=== PATIENT | male | born 1955 | race Caucasian/White ===

== ENCOUNTER 2021-11-24 09:27 | Outpatient (CLI) | payer MEDICARE, SELFPAY ==
[2021-11-24 09:39] LABS: Hematocrit 45.4 % (37.0-46.0); Hemoglobin 15.3 g/dL (12.4-15.3); Mean Corpuscular HGB Conc 33.7 g/dL (32.0-36.0); Mean Corpuscular Hemoglobin 31.5 pg (27.0-31.0); Mean Corpuscular Volume 93.4 fL (78.0-102.0); Mean Platelet Volume 8.7 fl (8.7-11.0); Platelet Count Result 309 K/mm3 (150-420); Red Blood Count 4.86 M/mm3 (4.70-6.10); Red Cell Distribution Width 13.2 % (11.6-14.4); White Blood Count 5.5 K/mm3 (4.8-10.8)
[2021-11-24 10:22] LABS: Alanine Aminotransferase 29 U/L (16-63); Albumin Level 3.6 g/dL (3.4-5.0); Alkaline Phosphatase 63 U/L (46-116); Anion Gap 9 mmol/L (8-16); Aspartate Amino Transferase 20 U/L (15-37); Bilirubin,Total 0.7 mg/dL (0.00-1.00); Blood Urea Nitrogen 13 mg/dL (7-18); Calcium 9.1 mg/dL (8.5-10.1); Carbon Dioxide 29 mmol/L (21-32); Chloride 103 mmol/L (98-108); Cholesterol 130 mg/dL (0-200); Estimated Glomerular Filt Rate > 60; Glucose 94 mg/dL (70-99); HDL Direct 26 mg/dL (40-60); LDL Cholesterol Calculated 47 mg/dL (<130); Osmolality Calculated 292 mOsm/kg (285-295); Potassium 4.6 mmol/L (3.5-5.1); Sodium 141 mmol/L (136-145); Total Protein 6.7 g/dL (6.4-8.2); Triglycerides 283 mg/dL (0-150)
== END 2021-11-24 09:28 | disposition home or self-care (01) ==
LOC: CHSLAB 09:31
PROVIDERS: PCP Family Medicine; Visit Provider Nurse Practitioner Family
DX: I10 Essential (primary) hypertension (principal); Z13.6 Encounter for screening for cardiovascular disorders
CPT/HCPCS: 36415; 80053; 80061; 85027

== ENCOUNTER 2021-12-08 07:27 | Outpatient (CLI) | payer MEDICARE, SELFPAY ==
--- NOTE | ~2021-12-08 | MR_ITS ---
EXAMINATION: MR brain/brain stem wo con DATE: 12/08/2021 08:25 INDICATION: Headache. TECHNIQUE: Magnetic resonance imaging (MRI) of the brain and brainstem was performed without intraven ous contrast. Sequences included sagittal and axial T1-weighted SE, axial diffusion-weighted FS SE, a xial T2*-weighted GRE, axial T2-weighted FLAIR Propeller, and axial T2-weighted Propeller. Apparent d iffusion coefficient (ADC) maps were created. COMPARISON: CT sinus dated 12/08/2021. FINDINGS: Normal brain parenchymal volume for age. Normal haley-white differentiation. No ventriculome azalea or midline shift. No abnormal masses or mass effect. Flow-voids in the major intracerebral arter ies are within normal limits. There is mild right maxillary sinus disease. There are scattered mild p eriventricular and subcortical white matter changes, most likely related to small vessel ischemic dis ease (microangiopathy). Midline sagittal images are unremarkable. IMPRESSION: 1. Mild right maxillary sinus disease. 2: Chronic age-related findings. Reviewed, dictated and finalized at location A.
--- NOTE | ~2021-12-08 | CT_ITS ---
EXAMINATION: CT sinus wo con DATE: 12/08/2021 07:44 INDICATION: Chronic sinusitis. Headache. TECHNIQUE: Computed tomography (CT) of the paranasal sinuses was performed without intravenous contra st. The dose-length product was 283.39 mGy-cm. Automated exposure control and iterative reconstructio n technique were employed. COMPARISON: None FINDINGS: There is mucosal thickening of the right maxillary sinus. No mucoperiosteal reaction. Ostio meatal units are patent. No air-fluid levels. Mastoids are pneumatized. IMPRESSION: 1. Mild right maxillary sinus disease. Reviewed, dictated and finalized at location A.
== END 2021-12-08 07:28 | disposition home or self-care (01) ==
LOC: CHSIMG 07:29
PROVIDERS: PCP Family Medicine; Visit Provider Family Medicine
DX: J32.9 Chronic sinusitis, unspecified (principal); R51.9 Headache, unspecified; G89.29 Other chronic pain
CPT/HCPCS: 70486; 70551

== ENCOUNTER 2022-04-01 15:09 | Outpatient (CLI) | payer MEDICARE, SELFPAY ==
[2022-04-01 16:36] LABS: Vitamin B12 1980 pg/mL (193-986)
== END 2022-04-01 15:10 | disposition home or self-care (01) ==
LOC: CHSLAB 15:13
PROVIDERS: PCP Family Medicine
DX: G43.709 Chronic migraine without aura, not intractable, without status migrainosus (principal)
CPT/HCPCS: 36415; 82607; 83735

== ENCOUNTER 2022-07-20 15:37 | Outpatient (CLI) | payer MEDICARE, SELFPAY ==
--- NOTE | ~2022-07-20 | XR_ITS ---
EXAMINATION: XR chest 2V 07/20/2022 15:59 INDICATION: Cough PROCEDURE: 2 view chest COMPARISON: No prior studies for comparison. FINDINGS: The lungs are clear. The cardiomediastinal silhouette is within normal limits. There are no pleural effusions. There is no pneumothorax suspected. IMPRESSION: 1: NO ACUTE CARDIOPULMONARY DISEASE. Reviewed, dictated and finalized at location A.
[2022-07-20 16:00] LABS: Hematocrit 46.4 % (37.0-46.0); Hemoglobin 15.6 g/dL (12.4-15.3); Mean Corpuscular HGB Conc 33.6 g/dL (32.0-36.0); Mean Corpuscular Hemoglobin 31.1 pg (27.0-31.0); Mean Corpuscular Volume 92.4 fL (78.0-102.0); Mean Platelet Volume 9.3 fl (8.7-11.0); Platelet Count Result 276 K/mm3 (150-420); Red Blood Count 5.02 M/mm3 (4.70-6.10); Red Cell Distribution Width 13.3 % (11.6-14.4); White Blood Count 5.1 K/mm3 (4.8-10.8)
[2022-07-20 17:05] LABS: Alanine Aminotransferase 32 U/L (16-63); Albumin Level 4.1 g/dL (3.4-5.0); Alkaline Phosphatase 92 U/L (46-116); Anion Gap 6 mmol/L (8-16); Aspartate Amino Transferase 24 U/L (15-37); Bilirubin,Total 0.5 mg/dL (0.00-1.00); Blood Urea Nitrogen 11 mg/dL (7-18); Carbon Dioxide 29 mmol/L (21-32); Chloride 105 mmol/L (98-108); Estimated Glomerular Filt Rate > 60; Glucose 93 mg/dL (70-99); Osmolality Calculated 289 mOsm/kg (285-295); Potassium 4.6 mmol/L (3.5-5.1); Sodium 140 mmol/L (136-145); Total Protein 7.1 g/dL (6.4-8.2)
== END 2022-07-20 15:38 | disposition home or self-care (01) ==
LOC: CHSLAB 15:40
PROVIDERS: PCP Family Medicine; Visit Provider Family Medicine
DX: R05.9 Cough, unspecified (principal)
CPT/HCPCS: 36415; 71046; 80053; 85027

== ENCOUNTER 2022-07-21 11:35 | Outpatient (CLI) | payer MEDICARE, SELFPAY ==
--- NOTE | ~2022-07-21 | CT_ITS ---
EXAMINATION: CTA chest PE protocol DATE: 07/21/2022 12:14 INDICATION: Dyspnea. TECHNIQUE: Computed tomography angiography (CTA) of the chest was performed with 100 mL Omnipaque-350 intravenous contrast timed to evaluate the pulmonary arteries. Coronal maximum intensity projection 3D-reconstructions were created by the technologist. Automated exposure control and iterative reconst ruction technique were employed. The dose-length product was 863.66 mGy-cm. COMPARISON: None. FINDINGS: There is a 3 mm nodule in right lung upper lobe. A calcified right lung nodule and calcifie d mediastinal lymph node are consistent with old granulomatous disease. There is minimal atelectasis on the left. No pleural effusion. The heart size is normal. No pericardial effusion. There is no pulm onary embolus. There is bilateral gynecomastia. There is severe thoracic spondylosis. IMPRESSION: 1. No pulmonary embolus. Reviewed, dictated and finalized at location A. IMPRESSION: 1. No pulmonary embolus.
== END 2022-07-21 11:36 | disposition home or self-care (01) ==
LOC: CHSLAB 11:38
PROVIDERS: PCP Family Medicine; Visit Provider Family Medicine
DX: R06.00 Dyspnea, unspecified (principal)
CPT/HCPCS: 71275; Q9967

== ENCOUNTER 2022-11-02 13:03 | Outpatient (RCR) | payer MEDICARE, SELFPAY ==
--- NOTE | 2022-11-02 13:40 | PTOPEVAL1 ---
Assessment and note entered by Jerry Rodney Evaluation Information Assessment Status Evaluation Diagnosis cervical pain Onset 05/02/22 Subjective Information Pt. reports that he developed worsening neck pain and headaches over the past 6 months. Pt. describes pain going across the neck. He reports that he has constant headaches. He reports pain is worst with activities such as looking at his phone or tablet. He states that he notices popping in the neck and has difficulty with turning the head side to side while driving. He reports that pain will disrupt his sleep when turning over. He states that his goal for therapy is to get rid of his headaches. Reported Pain Level Pain Score 5,5: Self Report Assessment PT Clinical Summary Pt. is a 67 year old male who enters the clinic with neck pain. He presents with impaired c-spine ROM, pain, impaired postural awareness and proximal u.e. weakness. Continued skilled PT is indicated in order to improve these areas to help reduce pain and improve IADL performance. Plan of Care Interventions Electrical Stimulation,Hot Pack/Cold Pack,Manual Therapy,Neuro Re-education,Patient/Caregiver Educati,Therapeutic Activities,Therapeutic Exercise,Self-Care/Home Management PT Services Indicated Yes Treatment Frequency and 2x/week x 10 visits Duration These treatments will address the objective and functional deficits as defined above. The patient will be advanced safely and appropriately in order for the patient to progress towards his/her prior level of function. Additional exercises will be introduced and as well as a comprehensive home exercise program upon discharge, if needed, ?to ensure carryover of functional gains achieved in the clinic. This treatment plan has been reviewed and agreement upon by the patient.
== END 2022-12-13 10:54 | disposition home or self-care (01) ==
LOC: CHSPT 13:03
DX: G43.709 Chronic migraine without aura, not intractable, without status migrainosus (principal); M54.2 Cervicalgia
CPT/HCPCS: 97014; 97110; 97140; 97161; G0283

== ENCOUNTER 2022-12-30 09:04 | Outpatient (CLI) | payer MEDICARE, SELFPAY ==
[2022-12-30 09:21] LABS: Hematocrit 43.8 % (37.0-46.0); Hemoglobin 14.5 g/dL (12.4-15.3); Mean Corpuscular HGB Conc 33.1 g/dL (32.0-36.0); Mean Corpuscular Hemoglobin 30.7 pg (27.0-31.0); Mean Corpuscular Volume 92.6 fL (78.0-102.0); Mean Platelet Volume 9.3 fl (8.7-11.0); Platelet Count Result 271 K/mm3 (150-420); Red Blood Count 4.73 M/mm3 (4.70-6.10); Red Cell Distribution Width 13.4 % (11.6-14.4); White Blood Count 5.7 K/mm3 (4.8-10.8)
[2022-12-30 09:49] LABS: Alanine Aminotransferase 31 U/L (16-63); Albumin Level 3.7 g/dL (3.4-5.0); Alkaline Phosphatase 82 U/L (46-116); Anion Gap 7 mmol/L (8-16); Aspartate Amino Transferase 33 U/L (15-37); Bilirubin,Total 0.4 mg/dL (0.00-1.00); Blood Urea Nitrogen 16 mg/dL (7-18); Calcium 8.7 mg/dL (8.5-10.1); Carbon Dioxide 28 mmol/L (21-32); Chloride 106 mmol/L (98-108); Cholesterol 110 mg/dL (0-200); Estimated Glomerular Filt Rate > 60; Glucose 109 mg/dL (70-99); HDL Direct 27 mg/dL (40-60); LDL Cholesterol Calculated 48 mg/dL (<130); Osmolality Calculated 294 mOsm/kg (285-295); Potassium 4.4 mmol/L (3.5-5.1); Sodium 141 mmol/L (136-145); Triglycerides 177 mg/dL (0-150)
== END 2022-12-30 09:05 | disposition home or self-care (01) ==
LOC: CHSLAB 09:05
PROVIDERS: PCP Family Medicine; Visit Provider Family Medicine
DX: I10 Essential (primary) hypertension (principal)
CPT/HCPCS: 36415; 80053; 80061; 85027

== ENCOUNTER 2023-10-24 07:53 | Outpatient (CLI) | payer MEDICARE, SELFPAY ==
--- NOTE | 2023-10-24 07:57 | EST_ITS ---
Patient Info Name: Wan Fabian Age: 68 years : 1955 Gender: Male Ht: 66 in Wt: 252 lbs BSA: 2.36 m2 HR: 76 bpm BP: 137 / 68 mmHg Heart Rhythm: Sinus Rhythm Technical Quality: Good Exam Date: 10/24/2023 9:15 AM Exam Location: Echo Lab Patient Status: Outpatient Admit Date: 10/24/2023 Staff Ordering Physician: Donal Diaz DO Attending Provider: Donal Diaz DO Exam Type: CA stress herberth w NM Study Info A regadenoson stress test was performed. History/Risk Factors Family History: Coronary Artery Disease Summary 1. 1. Negative lexiscan stress test for ischemic ST changes by ECG criteria. 2. 2. Stable hemodynamics throughout the test. 3. 3. Nuclear scan to follow and will be reported separately. Please correlate with it. Protocol: LEXISCAN Stress ECG Details Stage: REST Duration (min): 5 min : 53 sec HR (bpm): 76 SBP (mmHg): 137 DBP (mmHg): 68 Stage: REST Duration (min): 11 min : 13 sec HR (bpm): 79 SBP (mmHg): 137 DBP (mmHg): 68 Stage: STAGE 1 Duration (min): 0 min : 12 sec HR (bpm): 77 SBP (mmHg): 137 DBP (mmHg): 68 Stage: RECOVERY Duration (min): 0 min : 47 sec HR (bpm): 97 SBP (mmHg): 137 DBP (mmHg): 68 Stage: RECOVERY Duration (min): 1 min : 47 sec HR (bpm): 99 SBP (mmHg): 144 DBP (mmHg): 84 Stage: RECOVERY Duration (min): 2 min : 47 sec HR (bpm): 93 SBP (mmHg): 135 DBP (mmHg): 86 Stage: RECOVERY Duration (min): 3 min : 47 sec HR (bpm): 93 SBP (mmHg): 135 DBP (mmHg): 86 Stage: RECOVERY Duration (min): 4 min : 47 sec HR (bpm): 88 SBP (mmHg): 130 DBP (mmHg): 70 Stage: RECOVERY Duration (min): 5 min : 47 sec HR (bpm): 86 SBP (mmHg): 133 DBP (mmHg): 69 Stage: RECOVERY Duration (min): 6 min : 20 sec HR (bpm): 89 SBP (mmHg): 133 DBP (mmHg): 69 Rest HR: 79 bpm Peak HR: 100 bpm Rest Sys BP: 137 mmHg Peak Sys BP: 144 mmHg Max Pred HR: 153 bpm % Max Pred HR: 65 % Target HR: 130 bpm Max RPP: 14,400 bpm*mmHg BP Response: Normal blood pressure response Termination Reason: Completed Protocol Cardiac Symptoms: Chest discomfort Total Time: 0 min : 12 sec Rest Coleman BP: 68 mmHg Peak Coleman BP: 84 mmHg Total Dose: 0.4 mg Resting ECG Normal sinus rhythm - normal ECG. Stress ECG No abnormal ST/T wave changes. Arrhythmias None. Report Signatures
--- NOTE | 2023-10-25 16:16 | WPDCARIOSTRE ---
Nuclear Stress Test INDICATIONS Indications: Dyspnea PROCEDURE Procedure Performed: Myocardial Perf Spect-Multi Procedure: Patient underwent a lexiscan stress test and immediately was injected with 30.8 mCi of cardiolyte. Multiple tomographic images were obtained. These are of good quality. There is no perfusion defect with stress imaging. A separate resting images were obtained after patient was injected with 10.0 mCi of cardiolyte. Multiple tomographic images were obtained. These are of good quality. There is evidence of a large size, severe inferior perfusion defect with rest imaging CONCLUSION Conclusion: 1. Normal myocardial perfusion imaging demonstrating no perfusion defect with stress imaging. 2. No evidence of reversible ischemia. 3. Left ventriculogram demonstrates normal measured ejection fraction of 67% with no wall motion abnormalities. 4. TID score 0.98 is not elevated.
== END 2023-10-24 07:54 | disposition home or self-care (01) ==
LOC: CHSIMG 07:54
PROVIDERS: PCP Family Medicine; Visit Provider Family Medicine
DX: R07.9 Chest pain, unspecified (principal); R68.89 Other general symptoms and signs
CPT/HCPCS: 78452; 93017; A9502; J2785

== ENCOUNTER 2023-11-23 09:53 | Outpatient (CLI) | payer MEDICARE, SELFPAY ==
--- NOTE | 2023-12-01 14:25 | WPDPFTINT ---
PFT Procedure Performed PFT Procedure Performed Spirometry with Pre/Post Bronchodilator Plethysmography (Lung Vol) Diffusing Cap (DLCO) Flow Vol Loop PFT Interpretation DOS: 11/23/2023 REQUESTING: Dr Donal Diaz REASON FOR TESTING: Asthma PULMONARY FUNCTION TESTS Results are reliable and reproducible. Spirometry: Pre bronchodilator FEV1 is 1.78 L, 63% predicted, decreased. Pre bronchodilator FVC is 2.69 L, 74 %, normal. FEV1/FVC ratio is 66%, decreased, consistent with airflow obstruction. After bronchodilator administration there is a 4% increase in the FEV1, 1.84 L, 65% predicted. There is a 3% increase in the FVC, 2.76 L, 76% predicted. The FEV1/FVC ratio after bronchodilator remains low, 67%. Lung volumes: Total lung capacity is 6.41 L, 110%, normal. Residual volume is 3.71 L, 162%, elevated consistent with air trapping. RV/TLC is increased 58%. FRC is 4.11 L, 151%, increased. Airway resistance is 2.43, 135%. Diffusion: DLCO is 21.5, 85% predicted normal. DLCO/VA 4.84, 132% predicted, normal. Flow volume loop: There is coving of the expiratory limb consistent with airflow obstruction. IMPRESSION: This study shows a mild obstructive ventilatory impairment with no significant response to bronchodilator, moderate air trapping and normal diffusion impairment. Lack of response to bronchodilator does not preclude use of clinically indicated. There are no prior studies for comparison. Shanelle Ashraf MD
== END 2023-11-23 09:54 | disposition home or self-care (01) ==
LOC: CHSCARD 09:54
PROVIDERS: PCP Family Medicine; Visit Provider Family Medicine
DX: R68.89 Other general symptoms and signs (principal); J45.909 Unspecified asthma, uncomplicated
CPT/HCPCS: 94060; 94726; 94729

== ENCOUNTER 2023-12-13 09:44 | Outpatient (CLI) | payer MEDICARE, SELFPAY ==
--- NOTE | ~2023-12-13 | XR_ITS ---
EXAMINATION: XR chest 2V 12/13/2023 10:11 INDICATION: Worsening shortness of breath. Asthma. PROCEDURE: 2 view chest COMPARISON: 03/19/2022 FINDINGS: The lungs are clear. Calcified granuloma right upper thorax. The cardiomediastinal silhouet te is within normal limits. There are no pleural effusions. There is no pneumothorax suspected. IMPRESSION: 1: NO ACUTE CARDIOPULMONARY DISEASE. Reviewed, dictated and finalized at location L.
== END 2023-12-13 09:45 | disposition home or self-care (01) ==
PROVIDERS: PCP Family Medicine; Visit Provider Family Medicine
DX: R07.9 Chest pain, unspecified (principal); R06.00 Dyspnea, unspecified
CPT/HCPCS: 71046

== ENCOUNTER 2023-12-26 09:27 | Outpatient (CLI) | payer MEDICARE, SELFPAY ==
--- NOTE | 2023-12-26 09:31 | ECHO_ITS ---
Patient Info Name: Wan Fabian Age: 68 years : 1955 Gender: Male Ht: 65 in Wt: 254 lbs BSA: 2.36 m2 HR: 78 bpm BP: 169 / 89 mmHg Heart Rhythm: Sinus Rhythm Technical Quality: Good Exam Date: 12/26/2023 9:24 AM Exam Location: Echo Lab Patient Status: Outpatient Admit Date: 12/26/2023 Staff Ordering Physician: Donal Diaz DO Wax Pumper: Kalyn Isbell RDCS Attending Provider: Donal Diaz DO Referring Physician: Emily DE LOS SANTOS; Exam Type: CA echo doppler color flow Study Info Indications - HEART FAILURE, UNSP Complete two-dimensional, color flow and Doppler transthoracic echocardiogram is performed. History/Risk Factors Family History: Coronary Artery Disease Summary 1. Complete two-dimensional, color flow and Doppler transthoracic echocardiogram is performed. 2. Left ventricular chamber dimension is normal. 3. Left ventricular systolic function is normal, estimated at 60-65%. 4. There is mild concentric increased left ventricular wall thickness. 5. The left ventricular diastolic function is grade I diastolic dysfunction. 6. E/e' 15 is elevated. 7. Left atrial chamber dimension is mildly enlarged. 8. There is moderate aortic valve sclerosis. 9. There is mild to moderate aortic valve stenosis with a peak velocity of 189 cm/s, mean gradient of 10 mmHg, and aortic valve area of 1.4 cm2. 10. There is trace aortic valve regurgitation. 11. No pulmonary hypertension, estimated pulmonary arterial systolic pressure is 19 mmHg. Left Ventricle E/e' 15 is elevated. Left ventricular chamber dimension is normal. Left ventricular systolic function is normal, estimated at 60-65%. There is mild concentric increased left ventricular wall thickness. The left ventricular diastolic function is grade I diastolic dysfunction. Right Ventricle Right ventricular systolic function is normal and with normal TAPSE 3.1 cm. Right ventricular chamber dimension is normal. Left Atria Left atrial chamber dimension is mildly enlarged. Right Atria Right atrial chamber dimension is normal. Aortic Valve The aortic valve is trileaflet. There is moderate aortic valve sclerosis. There is mild to moderate aortic valve stenosis with a peak velocity of 189 cm/s, mean gradient of 10 mmHg, and aortic valve area of 1.4 cm2. There is trace aortic valve regurgitation. Pulmonic Valve There is no pulmonic regurgitation. Mitral Valve There is no mitral valve stenosis. There is no mitral valve regurgitation. Tricuspid Valve There is no tricuspid valve regurgitation. No pulmonary hypertension, estimated pulmonary arterial systolic pressure is 19 mmHg. Pericardium/Pleural There is no pericardial effusion. Inferior Vena Cava Normal inferior vena cava with >50% collapse upon inspiration consistent with normal right atrial pressure, 5 mmHg. Aorta The aortic root size at the sinus of Valsalva is normal. Left Ventricular Outflow Tract Name Value Normal LVOT 2D LVOT Diameter 1.8 cm LVOT Doppler LVOT Peak Velocity 119 cm/s LVOT Peak Gradient 6 mmHg LVOT Mean Gradient 4 mmHg LVOT VTI 31 cm
== END 2023-12-26 09:28 | disposition home or self-care (01) ==
LOC: CHSIMG 09:28
PROVIDERS: PCP Family Medicine; Visit Provider Family Medicine
DX: I50.9 Heart failure, unspecified (principal); I51.7 Cardiomegaly; I35.8 Other nonrheumatic aortic valve disorders
CPT/HCPCS: 93306

== ENCOUNTER 2024-10-04 10:18 | Outpatient (CLI) | payer MEDICARE, SELFPAY ==
[2024-10-04 11:25] LABS: Alanine Aminotransferase 32 U/L (16-63); Albumin Level 3.9 g/dL (3.4-5.0); Alkaline Phosphatase 77 U/L (46-116); Anion Gap 6 mmol/L (4-12); Aspartate Amino Transferase 27 U/L (15-37); Bilirubin,Total 0.6 mg/dL (0.00-1.00); Blood Urea Nitrogen 20 mg/dL (7-18); Calcium 9.5 mg/dL (8.5-10.1); Carbon Dioxide 32 mmol/L (21-32); Chloride 105 mmol/L (98-108); Cholesterol 161 mg/dL (0-200); Estimated Glomerular Filt Rate > 60; Glucose 93 mg/dL (70-99); HDL Direct 36 mg/dL (40-60); LDL Cholesterol Calculated 98 mg/dL (<130); Osmolality Calculated 298 mOsm/kg (285-295); Sodium 143 mmol/L (136-145); Total Protein 6.6 g/dL (6.4-8.2); Triglycerides 137 mg/dL (0-150)
== END 2024-10-04 10:19 | disposition home or self-care (01) ==
LOC: CHSLAB 10:19
PROVIDERS: PCP Family Medicine; Visit Provider Internal Medicine Cardiovascular Disease
DX: E78.5 Hyperlipidemia, unspecified (principal)
CPT/HCPCS: 36415; 80053; 80061

== ENCOUNTER 2025-01-03 09:07 | Outpatient (CLI) | payer MEDICARE, SELFPAY ==
[2025-01-03 09:34] LABS: Basophils Absolute Auto 0.05 K/mm3 (0.00-0.10); Basophils Percent Auto 0.8 % (0.0-1.0); Eosinophils Absolute Auto 0.17 K/mm3 (0.02-0.50); Eosinophils Percent Auto 2.8 % (1.0-6.0); Hematocrit 42.4 % (37.0-46.0); Hemoglobin 14.1 g/dL (12.4-15.3); Immature Granulocyte Absolute 0.02 K/mm3 (0.00-0.00); Immature Granulocyte Percent A 0.3 % (0.0-0.0); Lymphocytes Absolute Auto 2.29 K/mm3 (1.10-4.50); Lymphocytes Percent Auto 37.6 % (18.0-42.0); Mean Corpuscular HGB Conc 33.3 g/dL (32-36); Mean Corpuscular Hemoglobin 30.2 pg (27.0-31.0); Mean Corpuscular Volume 90.8 fL (78.0-102.0); Monocytes Absolute Auto 0.68 K/mm3 (0.10-0.90); Monocytes Percent Auto 11.2 % (2.0-11.0); Neutrophils Absolute Auto 2.88 K/mm3 (1.70-7.20); Neutrophils Percent Auto 47.3 % (50.0-70.0); Platelet Count Result 283 K/mm3 (150-420); Red Blood Count 4.67 M/mm3 (4.70-6.10); Red Cell Distribution Width 13.7 % (11.6-14.4); White Blood Count 6.1 K/mm3 (4.8-10.8)
--- OUTSIDE RECORDS SUMMARY | 2025-01-03 09:34 | XMS_ITS | Encounter Summary ---
Author Organization [facility] Address [address] [place] [address] Phone Care Team Providers Care Client Service Professional Name Role Phone Donal Diaz MD Primary Care Provider [phone] Vandana Benítez APRN, LOAF COUNTER Unavailable [phone] Reason for Visit * Reason Comments Medication Refill Encounter Details Date Type Department Care Team (Late st Contact Info) Description 01/10/2023 Refill [facility] - Neurology [facility] [address] [place] [id number] Vandana Benítez APRN, LOAF COUNTER [address] [place] [address] Medication Refill Social History Tobacco Use Types Packs/Day Years Used Date Smoking Tobacco: Never Smokeless Tobacco: Never Alcohol Use Standard Drinks/Week Comments Yes 0 (1 standard drink = 0.6 oz pur e alcohol) Occasionally Sex and Gender Information Value Date Recorded Sex Assigned at Not on file Legal Sex Male 8:39 PM CDT Gender Identity Not on file Sexual Orientation Not on file COVID-19 Exposure Response Date Recorded In the last 10 days, have yo u been in contact with someone who was confirmed or suspected to have Coronavirus/COVID-19? No / Unsure 12/30/2022 2:27 PM CDT documented as of this encounter Miscellaneous Notes * Telephone Encounter - Vikki Clemente RN - 01/11/2023 8:19 AM CDT Medication failed the protocol, provider to review and approve the medication order if appropriate. Requested Prescriptions Pending Prescriptions Disp Refills venlafaxine (EFFEXOR-XR) 75 MG CAPSULE SR 24 HR [Pharmacy Med Name: Venlafaxine HCl ER 75 MG Oral Capsule Extended Release 24 Hour] 90 Capsule 0 Sig: Take 1 capsule by mouth once daily SNRI (6 Month Refill Only) Protocol Failed - 01/10/2023 5:38 PM Failed - Has an encounter in the past 6 months with a depression or anxiety visit diagnosis Passed - Visit with relevant provider in past 6 months or upcoming 90 days Recent Visits Date Type Provider Dept 12/30/22 Office Visit Vandana Benítez APRN, [facility] Neurology [facility] 10/26/22 Office Visit Vandana Benítez APRN, LOAF COUNTER [facility] 09/09/22 Office Visit Vandana Benítez APRN, [facility] 08/10/22 Office Visit Vandana Benítez APRN, [facility] Showing recent visits within past 182 days and meeting all other requirements Future Appointments Date Type Provider Dept 03/31/23 Appointment Vandana Benítez APRN, [facility] Showing future appointments within next 90 days and meeting all other requirements Passed - Patient has established therapy with Serotonin-Norepinephrine Reuptake Inhibitors for at least 6 months documented in this encounter Plan of Treatment Upcoming Encounters Date Type Department Care Team (Late st Contact Info) Description 01/03/2025 1:30 PM CDT Office Visit [facility] - Neurology - [place] [address] [place] [address] Vandana Benítez APRN, LOAF COUNTER [address] [place] [address] documented as of this encounter Visit Diagnoses Diagnosis Chronic migraine w/o aura w/o status migrainosus, not intractable Chronic migraine without aura, without mention of intractable migraine without mention of status migrainosus documented in this encounter Care Teams Client Service Professional Relationship Specialty Start Date End Date Donal Diaz MD [address] [place] [id number] PCP - General Family Medicine 01/21/22 Vandana Benítez APRN, LOAF COUNTER [address] [place] [address] Nurse Practitioner Advanced Practice Nurse 06/01/22 documented as of this encounter
--- OUTSIDE RECORDS SUMMARY | 2025-01-03 09:34 | XMS_ITS | Encounter Summary ---
Author Organization [facility] Address [address] [place] [address] Phone Care Team Providers Care Restorative Aide Name Role Phone Donal Diaz MD Primary Care Provider [phone] Vandana Benítez APRN, LOGISTICS DIRECTOR Unavailable [phone] Reason for Visit * Reason Comments Medication Refill Encounter Details Date Type Department Care Team (Late st Contact Info) Description 10/04/2023 Refill [facility] - Neurology - [place] [address] [place] [phone] Vandana Benítez APRN, LOGISTICS DIRECTOR [address] [place] [address] Medication Refill Social History Tobacco Use Types Packs/Day Years Used Date Smoking Tobacco: Never Smokeless Tobacco: Never Alcohol Use Standard Drinks/Week Comments Yes 0 (1 standard drink = 0.6 oz pur e alcohol) Occasionally Sex and Gender Information Value Date Recorded Sex Assigned at Not on file Legal Sex Male 8:39 PM CDT Gender Identity Not on file Sexual Orientation Not on file documented as of this encounter Miscellaneous Notes * Telephone Encounter - Vikki Clemente RN - 10/05/2023 8:12 AM CST Medication failed the protocol, provider to review and approve the medication order if appropriate. Requested Prescriptions Pending Prescriptions Disp Refills venlafaxine (EFFEXOR-XR) 75 MG CAPSULE SR 24 HR [Pharmacy Med Name: Venlafaxine HCl ER 75 MG Oral Capsule Extended Release 24 Hour] 90 Capsule 0 Sig: Take 1 capsule by mouth once daily SNRI (6 Month Refill Only) Protocol Failed - 10/04/2023 4:41 PM Failed - Has an encounter in the past 6 months with a depression or anxiety visit diagnosis Passed - Visit with relevant provider in past 6 months or upcoming 90 days Recent Visits Date Type Provider Dept 07/14/23 Office Visit Vandana Benítez APRN, LOGISTICS DIRECTOR [facility] [place] [facility] Showing recent visits within past 182 days and meeting all other requirements Future Appointments Date Type Provider Dept 01/03/24 Appointment Vandana Benítez APRN, ZAYRA [facility] Neurology [place] Showing future appointments within next 90 days and meeting all other requirements Passed - Patient has established therapy with Serotonin-Norepinephrine Reuptake Inhibitors for at least 6 months RY BLENDER documented in this encounter Plan of Treatment Upcoming Encounters Date Type Department Care Team (Late st Contact Info) Description 01/03/2025 1:30 PM CDT Office Visit [facility] - [place] [address] [place] [address] Vandana Benítez APRN, LOGISTICS DIRECTOR [address] [place] [address] documented as of this encounter Visit Diagnoses Diagnosis Chronic migraine w/o aura w/o status migrainosus, not intractable Chronic migraine without aura, without mention of intractable migraine without mention of status migrainosus documented in this encounter Care Teams Restorative Aide Relationship Specialty Start Date End Date Donal Diaz MD [address] [place] [id number] PCP - General Family Medicine 01/21/22 Vandana Benítez APRN, ZAYRA [address] [place] [address] Nurse Practitioner Advanced Practice Nurse 06/01/22 documented as of this encounter
--- OUTSIDE RECORDS SUMMARY | 2025-01-03 09:34 | XMS_ITS | Clinical Summary ---
Author Organization [facility] Address [address], [facility] [address] [place] [address] Phone Care Team Providers Care Technical Support Director Name Role Phone Donal Diaz MD Primary Care Provider [phone] Vandana Benítez APRN, REGULATORY COMPLIANCE DIRECTOR Unavailable [phone] Allergies Active Allergy Reactions Criticality Noted Date Comments Esomeprazole Other (see Comments) 08/30/2017 Causes Migraine Headaches. Poison Rosalie Extract Rash 08/30/2017 Propranolol Palpitations 09/09/2022 Heart felt fluttery Topiramate Palpitations 04/01/2022 Medications omeprazole (PriLOSEC) 40 MG CAPSULE DELAYED RELEASE Take 40 mg by mouth daily. Active Potassium 99 MG Tablet Take 2 Tabs by mouth daily. Active vitamin E (TOCOPHEROL) 400 UNIT Capsule Take 400 Units by mouth daily. Active ALBUTEROL SULFATE HFA IN take by inhalation. Active montelukast (SINGULAIR) 10 MG Tablet Take 10 mg by mouth every evening. Active Multiple Vitamin (MULTIVITAMIN PO) Take by mouth. Activ e Budesonide-Form oterol Fumarate (SYMBICORT IN) take by inhalation 2 times daily. Active fluticasone (FLONASE) 50 MCG/ACT Suspension 1-2 Sprays by Nasal route daily. Use in each nostril as directed. Active Rizatriptan Benzoate 10 MG TabletIndicatio ns:Chronic migraine w/o aura w/o status migrainosus, not intractable Take 1 Tablet by mouth once as needed for Headaches. May repeat in 2 hours in needed 10 Tablet 2 10/26/19 23 Active Verapamil HCl CR 360 MG CAPSULE SR 24 HR Take 360 mg by mouth every morning. Active losartan-hydroc hlorothiazide (HYZAAR) 50-12.5 MG Tablet Take 1 Tablet by mouth daily. 06/09/20 24 Active methylPREDNISol one (MEDROL DOSPACK) 4 MG Tablet Therapy PackIndications :Sinus headache Take 1 Tablet by mouth See Admin Instructions. 6 p.o day one, 5 p.o. Day two, 4 p.o. Day three, 3 p.o. Day 4, 2 p.o. Day 5, 1 p.o. Day 6 21 Tablet 07/05/20 24 Active venlafaxine (EFFEXOR-XR) 75 MG CAPSULE SR 24 HRIndications:C hronic migraine w/o aura w/o status migrainosus, not intractable Take 1 capsule by mouth once daily 90 Capsule 12/25/19 25 Active venlafaxine (EFFEXOR-XR) 75 MG CAPSULE SR 24 HRIndications:C hronic migraine w/o aura w/o status migrainosus, not intractable Take 1 capsule by mouth once daily 90 Capsule 09/28/19 25 025 Discontinued Active Problems No known active problems Encounters Date Type Department Care Team Description 12/23/2024 Refill [facility] - [facility]rology [facility] [address] [place] [address] Kenny Rosenberg MD Medication Refill from Last 3 Months Family History Medical History Relation Name Comments Heart Disease Brother Heart Disease Father Cancer Mother breast & tumor on vena cava Chronic Obstructive Pulmonar y Disease Mother Cancer Paternal Grandfather prostat e Lupus Sister Relation Name Status Comments Brother Alive Father Alive Mother Paternal Grandfather Sister Alive Social History Tobacco Use Types Packs/Day Years Used Date Smoking Tobacco: Never Smokeless Tobacco: Never Tobacco Cessation:Counseling Given: Not Answered Alcohol Use Standard Drinks/Week Comments Yes 0 (1 standard drink = 0.6 oz pur e alcohol) Occasionally Sex and Gender Information Value Date Recorded Sex Assigned at Not on file Legal Sex Male 8:39 PM CDT Gender Identity Not on file Sexual Orientation Not on file Last Filed Vital Signs Vital Sign Reading Time Taken Comments Blood Pressure 140/74 07/05/2024 10:35 AM CDT Pulse 85 07/05/2024 10:35 AM CDT Temperature 36.6 C (97.8 F) 07/05/2024 10:35 AM CDT Respiratory Rate 16 07/05/2024 10:3 5 AM CDT Oxygen Saturation 100% 07/05/2024 10: 35 AM CDT Inhaled Oxygen Concentration - - Weight 111.7 kg (246 lb 3.2 oz) 024 10:35 AM CDT Height 170.2 cm (5' 7 ) 07/05/2024 10:3 5 AM CDT Body Mass Index 38.56 07/05/2024 10:35 AM CDT Plan of Treatment Upcoming Encounters Date Type Department Care Team (Late st Contact Info) Description 01/03/2025 1:30 PM CDT Office Visit [facility] - [facility]rology [facility] [address] [place] [address] Vandana Benítez APRN, REGULATORY COMPLIANCE DIRECTOR [address] [place] [address] Health Maintenance Due Date Last Done Comments Hepatitis C Virus (HCV) Screening 1955 TdaP Immunization 1955 Cologuard 2006 Immunochemical Fecal Occult Blood 2006 Zoster Immunization (1 of 2) 2006 PSA Discussion 2011 Pneumococcal Immunization (50+ years) (2 of 2 - PCV) 11/13/2022 11/13/2021 SARS-COV-2 Immunization (4 - season) 2024 09/02/2021, 10/11/2020, 09/20/2020 Influenza Immunization (Season Ended) 2025 10/11/2023 Colonoscopy 02/22/2028 02/21/2023, 08/19, 03/28/2014, Additional history exists Colorectal Cancer Screening 02/22/2028 02/21/2023, 08/19, 03/28/2014, Additional history exists Pneumococcal Immunization Combined Discontinued 11/13/2021 Respiratory Syncytial Virus (RSV) Immunization (Adult) Completed 10/11/2023 Hepatitis B Immunization Aged Out No longer eligible based on patient's age to complete this topic Meningococcal Immunization (ACWY) Aged Out No longer eligible based on patient's age to complete this topic Rotavirus Immunization Aged Out No lo nger eligible based on patient's age to complete this topic Procedures Procedure Name Priority Date/Time Associated Diagnosis Comments COLONOSCOPY Routine 03/28/2014 from Last 3 Months or Most Recently Relevant to Health Maintenance Results * COLONOSCOPY (03/28/2014) Tom Gonzalez DO PROCEDURE/MINOR SURGICAL ORDERA BLES Final Result from Last 3 Months or Most Recently Relevant to Health Maintenance Insurance MEDIC[facility] [place] [address] Care Teams Technical Support Director Relationship Specialty Start Date End Date Donal Diaz MD [address] [place] [id number] PCP - General Family Medicine 01/21/22 Vandana Benítez APRN, REGULATORY COMPLIANCE DIRECTOR [address] [place] [address] Nurse Practitioner Advanced Practice Nurse 06/01/22
--- OUTSIDE RECORDS SUMMARY | 2025-01-03 09:34 | XMS_ITS | Encounter Summary ---
Author Organization [facility] Address [address] [place] [address] Phone Care Team Providers Care Cuffer Name Role Phone Donal Diaz MD Primary Care Provider Vandana Benítez APRN, AD OPERATIONS INTERN Unavailable [phone] Reason for Visit * Reason Comments Medication Refill Encounter Details Date Type Department Care Team (Late Contact Info) Description 11/09/2022 Refill [facility] - [facility] [address] [place] [address] Vandana Benítez APRN, AD OPERATIONS INTERN [address] [place] [address] Medication Refill Social History Tobacco Use Types [...] suspected to have Coronavirus/COVID-19? No / Unsure 10/26/2022 9:30 AM DIGITAL LIBRARIAN documented as of this encounter Plan of Treatment Upcoming Encounters Date Type Department Care Team (Late Contact Info) Description 01/03/2025 1:30 PM CDT Office Visit [facility] - Neurology - [place] [address] [place] [address] Vandana Benítez APRN, AD OPERATIONS INTERN [address] [place] [address] documented as of this encounter Visit Diagnoses Diagnosis Chronic migraine w/o aura w/o status migrainosus, not intractable Chronic migraine without aura, without mention of intractable migraine without mention of status migrainosus Primary hypertension Unspecified essential hypertension documented in this encounter Care Teams Cuffer Relationship Specialty Start Date End Date Donal Diaz MD [address] [place] [address] PCP - General Family Medicine 01/21/22 Vandana Benítez APRN, AD OPERATIONS INTERN [address] [place] [address] Nurse Practitioner Advanced Practice Nurse 06/01/22 documented as of this encounter
--- OUTSIDE RECORDS SUMMARY | 2025-01-03 09:34 | XMS_ITS | CONTINUITY OF CARE DOCUMENT ---
Author Name charlie guerra Address Unknown Organization [facility] Office Address [address] [place] [address] [address] [place] [address] Phone [phone] Care Team Providers Care Procurement Intern Name Role Phone charlie guerra Unavailable Unavailable
--- OUTSIDE RECORDS SUMMARY | 2025-01-03 09:34 | XMS_ITS | Clinical Summary ---
Author Organization [facility] Address [address] [place] [address] Care Team Providers Care Insurance Account Representative Name Role Phone Carmen Godinez MD Primary Care Provider [phone] Allergies Active Allergy Reactions Criticality Noted Date Comments Esomeprazole Other (see comment) 08/30/2017 Causes Migraine Headaches. Poison Rosalie Extract Rash Low 08/30/2017 Medications omeprazole 40 MG capsule Take 40 mg by mouth daily. Active vitamin E 400 UNIT capsule Take 400 Units by mouth daily. Active vitamin B-12 (CYANOCOBALAMIN) 1000 mcg tablet Take 1,000 mcg by mouth 2 (two) times daily. Active amLODIPine 2.5 MG tablet Take 2.5 mg by mouth daily. 0 Active budesonide-formoter ol 160-4.5 MCG/ACT inhaler Inhale 2 puffs into the lungs every morning. Active albuterol sulfate HFA 108 (90 Base) MCG/ACT inhaler Inhale 2 puffs into the lungs every 6 (six) hours as needed for Wheezing. Active meloxicam 15 MG tabletIndications:P rimary osteoarthritis of left knee Take 1 tablet (15 mg total) by mouth daily. 30 tablet 2 1 Active Active Problems Problem Noted Date Diagnosed Date Other tear of medial meniscu s of left knee, unspecified whether old or current tear, subsequent encounter 05/08/2020 Other tear of medial meniscu s of right knee, unspecified whether old or current tear, subsequent encounter 05/08/2020 Primary osteoarthritis of left knee 06/25/2019 Primary osteoarthritis of right knee 06/25/2019 Family History Medical History Relation Comments Diabetes Brother Hypertension Brother Heart Disease Father Heart Attack Maternal Grandfather Cancer Maternal Grandmother Cancer Mother Emphysema Mother Heart Disease Mother Cancer Paternal Grandfather Hypertension Paternal Grandfather No Known Problems Paternal Grandmother Lupus Sister 1 No Known Problems Sister 2 Relation Status Comments Brother Father Alive Maternal Grandfather Maternal Grandmother Mother Paternal Grandfather Paternal Grandmother Sister 1 Alive Sister 2 Alive Social History Tobacco Use Types Packs/Day Years Used Date Smoking Tobacco: Never Smokeless Tobacco: Never Alcohol Use Standard Drinks/Week Comments Yes 0 (1 standard drink = 0.6 oz pur e alcohol) occasionally Sex and Gender Information Value Date Recorded Sex Assigned at Not on file Legal Sex Male 11:03 AM CDT Gender Identity Not on file Sexual Orientation Not on file Last Filed Vital Signs Vital Sign Reading Time Taken Comments Blood Pressure - - Pulse - - Temperature - - Respiratory Rate - - Oxygen Saturation - - Inhaled Oxygen Concentration - - Weight 114.3 kg (252 lb) 03/11/2021 3:42 PM CDT Height 170.2 cm (5' 7 ) 03/11/2021 3:42 PM CDT Body Mass Index 39.47 03/11/2021 3:42 PM CDT Plan of Treatment Health Maintenance Due Date Last Done Comments Colorectal Cancer Screening Colonoscopy (10 Years) 1956 Hepatitis C 1974 DTaP, Tdap and Td Vaccines ( 1 - Tdap) 1975 Zoster Vaccines (1 of 2) 2006 Annual Medicare Wellness Visit 2021 Pneumococcal Vaccine: 50+ Ye ars (1 of 1 - PCV) 2021 COVID-19 Vaccine ( - 2023-2 5 season) 2024 RSV Immunization or 60+ Years (1 - 1-dose 75+ series) 2031 Meningococcal B Vaccine Aged Out No l onger eligible based on patient's age to complete this topic Meningococcal Vaccine Aged Out No daniel les eligible based on patient's age to complete this topic RSV Immunizations Under 20 Months Aged Out No longer eligible based on patient's age to complete this topic Insurance MEDICARE Care Teams Insurance Account Representative Relationship Specialty Start Date End Date Carmen Godinez MD [address] [address] PCP - General FAMILY PRACTICE 05/07/20
--- OUTSIDE RECORDS SUMMARY | 2025-01-03 09:34 | XMS_ITS | Encounter Summary ---
Author Organization [facility] Address [address] [place] [address] Phone Care Team Providers Care Kiln Tender Name Role Phone Donal Diaz MD Primary Care Provider [phone] Vandana Benítez APRN, SHIPPING ORDER CLERK Unavailable [phone] Reason for Visit * Reason Comments Medication Refill Encounter Details Date Type Department Care Team (Late st Contact Info) Description 06/29/2023 Refill [facility] - Neurology - [place] [address] [place] [phone] Vandana Benítez APRN, SHIPPING ORDER CLERK [address] [place] [address] Medication Refill Social History Tobacco Use Types [...] Telephone Encounter - Vikki Clemente RN - 06/29/2023 12:17 PM CDT Medication failed the protocol, provider to review and approve the medication order if appropriate. Requested Prescriptions Pending Prescriptions Disp Refills venlafaxine (EFFEXOR-XR) 75 MG CAPSULE SR 24 HR [Pharmacy Med Name: Venlafaxine HCl ER 75 MG Oral Capsule Extended Release 24 Hour] 90 Capsule 0 Sig: Take 1 capsule by mouth once daily SNRI (6 Month Refill Only) Protocol Failed - 06/29/2023 12:02 PM Failed - Has an encounter in the past 6 months with a depression or anxiety visit diagnosis Passed - Visit with relevant provider in past 6 months or upcoming 90 days Recent Visits Date Type Provider Dept 04/05/23 Office Visit Vandana Benítez APRN, [facility] Neurology [facility] Christofer Tyree 12/30/22 Office Visit Vandana Benítez APRN, [facility] Neurology [facility] Showing recent visits within past 182 days and meeting all other requirements Future Appointments Date Type Provider Dept 07/14/23 Appointment Vandana Benítez APRN, [facility] Showing future appointments within next 90 days and meeting all other requirements Passed - Patient has established therapy with Serotonin-Norepinephrine Reuptake Inhibitors for at least 6 months documented in this encounter Plan of Treatment Upcoming Encounters Date Type Department Care Team (Late st Contact Info) Description 01/03/2025 1:30 PM CDT Office Visit [facility] - [facility] - [place] [address] [place] [address] Vandana Benítez APRN, [facility] [address] [place] [address] documented as of this encounter Visit Diagnoses Diagnosis Chronic migraine w/o aura w/o status migrainosus, not intractable Chronic migraine without aura, without mention of intractable migraine without mention of status migrainosus documented in this encounter Care Teams Kiln Tender Relationship Specialty Start Date End Date Donal Diaz MD [address] [place] [address] PCP - General Family Medicine 01/21/22 Vandana Benítez APRN, SHIPPING ORDER CLERK [address] [place] [address] Nurse Practitioner Advanced Practice Nurse 06/01/22 documented as of this encounter
--- OUTSIDE RECORDS SUMMARY | 2025-01-03 09:34 | XMS_ITS | Encounter Summary ---
Author Organization [facility] Address [address] [place] [address] Phone Care Team Providers Care Occupational Health Nursing Director Name Role Phone Donal Diaz MD Primary Care Provider Vandana Benítez APRN, HUMIDIFIER MAINTENANCE WORKER Unavailable [phone] Reason for Visit * Reason Comments Medication Refill Encounter Details Date Type Department Care Team (Late Contact Info) Description 05/04/2022 Refill [facility] [address] [place] [address] Vandana Benítez APRN, HUMIDIFIER MAINTENANCE WORKER [address] [place] [address] Medication Refill Social History Tobacco Use Types [...] on file documented as of this encounter Plan of Treatment Upcoming Encounters Date Type Department Care Team (Late Contact Info) Description 01/03/2025 1:30 PM CDT Office Visit [facility] [address] [place] [phone] Vandana Benítez APRN, HUMIDIFIER MAINTENANCE WORKER [address] [place] [address] documented as of this encounter Visit Diagnoses Diagnosis Chronic migraine w/o aura w/o status migrainosus, not intractable Chronic migraine without aura, without mention of intractable migraine without mention of status migrainosus Primary hypertension Unspecified essential hypertension documented in this encounter Care Teams Occupational Health Nursing Director Relationship Specialty Start Date End Date Donal Diaz MD [address] [place] [address] PCP - General Family Medicine 01/21/22 Vandana Benítez APRN, [facility] [address] [place] [address] Nurse Practitioner Advanced Practice Nurse 06/01/22 documented as of this encounter
--- OUTSIDE RECORDS SUMMARY | 2025-01-03 09:34 | XMS_ITS | Encounter Summary ---
Author Organization [facility] Address [address] [place] [address] Phone Care Team Providers Care Table Filler Name Role Phone Donal Diaz MD Primary Care Provider Vandana Benítez APRN, HOTEL GUEST SERVICE AGENT Unavailable [phone] Reason for Visit * Reason Comments Medication Refill Encounter Details Date Type Department Care Team (Late st Contact Info) Description 04/02/2023 Refill [facility] - Neurology [facility] [address] [place] [phone] Vandana Benítez APRN, HOTEL GUEST SERVICE AGENT [address] [place] [address] Medication Refill Social History Tobacco Use Types [...] suspected to have Coronavirus/COVID-19? No / Unsure 04/05/2023 1:26 PM CDT documented as of this encounter Miscellaneous Notes * Telephone Encounter - Vikki Clemente RN - 04/04/2023 8:54 AM CDT Medication failed the protocol, provider to review and approve the medication order if appropriate. Requested Prescriptions Pending Prescriptions Disp Refills venlafaxine (EFFEXOR-XR) 75 MG CAPSULE SR 24 HR [Pharmacy Med Name: Venlafaxine HCl ER 75 MG Oral Capsule Extended Release 24 Hour] 90 Capsule 0 Sig: Take 1 capsule by mouth once daily SNRI (6 Month Refill Only) Protocol Failed - 04/02/2023 3:01 PM Failed - Has an encounter in the past 6 months with a depression or anxiety visit diagnosis Passed - Visit with relevant provider in past 6 months or upcoming 90 days Recent Visits Date Type Provider Dept 12/30/22 Office Visit Vandana Benítez APRN, [facility] Neurology [place] 10/26/22 Office Visit Vandana Benítez APRN, [facility] Showing recent visits within past 182 days and meeting all other requirements Future Appointments Date Type Provider Dept 04/05/23 Appointment Vandana Benítez APRN, [facility] Neurology [place] [facility] Showing future appointments within next 90 days and meeting all other requirements Passed - Patient has established therapy with Serotonin-Norepinephrine Reuptake Inhibitors for at least 6 months documented in this encounter Plan of Treatment Upcoming Encounters Date Type Department Care Team (Late st Contact Info) Description 01/03/2025 1:30 PM CDT Office Visit [facility] - Neurology - [place] [address] [place] [address] Vandana Benítez APRN, HOTEL GUEST SERVICE AGENT [address] [place] [address] documented as of this encounter Visit Diagnoses Diagnosis Chronic migraine w/o aura w/o status migrainosus, not intractable Chronic migraine without aura, without mention of intractable migraine without mention of status migrainosus documented in this encounter Care Teams Table Filler Relationship Specialty Start Date End Date Donal Diaz MD [address] [place] [address] PCP - General Family Medicine 01/21/22 Vandana Benítez APRN, HOTEL GUEST SERVICE AGENT [address] [place] [address] Nurse Practitioner Advanced Practice Nurse 06/01/22 documented as of this encounter
--- OUTSIDE RECORDS SUMMARY | 2025-01-03 09:34 | XMS_ITS | Encounter Summary ---
Author Organization [facility] Address [address] [place] [address] Phone Care Team Providers Care Rotary Drier Operator Name Role Phone Donal Diaz MD Primary Care Provider Vandana Benítez APRN, ORDER MANAGER Unavailable [phone] Reason for Visit * Reason Comments Medication Refill Encounter Details Date Type Department Care Team (Late st Contact Info) Description 01/01/2024 Refill [facility] - Neurology - [place] [address] [place] [phone] Vandana Benítez APRN, ORDER MANAGER [address] [place] [address] Medication Refill Social History Tobacco Use Types [...] Telephone Encounter - Vikki Clemente RN - 01/09/2024 2:35 PM CDT Medication failed the protocol, provider to review and approve the medication order if appropriate. Requested Prescriptions Pending Prescriptions Disp Refills venlafaxine (EFFEXOR-XR) 75 MG CAPSULE SR 24 HR [Pharmacy Med Name: Venlafaxine HCl ER 75 MG Oral Capsule Extended Release 24 Hour] 90 Capsule 0 Sig: Take 1 capsule by mouth once daily SNRI (6 Month Refill Only) Protocol Failed - 01/01/2024 11:21 AM Failed - Has an encounter in the past 6 months with a depression or anxiety visit diagnosis Passed - Visit with relevant provider in past 6 months or upcoming 90 days Recent Visits Date Type Provider Dept 07/14/23 Office Visit Vandana Benítez APRN, ORDER MANAGER [facility] Showing recent visits within past 182 days and meeting all other requirements Future Appointments Date Type Provider Dept 02/14/24 Appointment Vandana Benítez APRN, [facility] Neurology [place] [facility] Showing future appointments within next 90 days and meeting all other requirements Passed - Patient has established therapy with Serotonin-Norepinephrine Reuptake Inhibitors for at least 6 months documented in this encounter Plan of Treatment Upcoming Encounters Date Type Department Care Team (Late st Contact Info) Description 01/03/2025 1:30 PM CDT Office Visit [facility] - [place] [address] [place] [address] Vandana Benítez APRN, ORDER MANAGER [address] [place] [address] documented as of this encounter Visit Diagnoses Diagnosis Chronic migraine w/o aura w/o status migrainosus, not intractable Chronic migraine without aura, without mention of intractable migraine without mention of status migrainosus documented in this encounter Care Teams Rotary Drier Operator Relationship Specialty Start Date End Date Donal Diaz MD [address] [place] [address] PCP - General Family Medicine 01/21/22 Vandana Benítez APRN, CNS [address] [place] [address] Nurse Practitioner Advanced Practice Nurse 06/01/22 documented as of this encounter
--- OUTSIDE RECORDS SUMMARY | 2025-01-03 09:34 | XMS_ITS | Encounter Summary ---
Author Organization [facility] Address [address] [place] [address] Phone Care Team Providers Care Personnel Counselor Name Role Phone Donal Diaz MD Primary Care Provider [phone] Vandana Benítez APRN, CRIBBING SETTER Unavailable [phone] Reason for Visit * Reason Comments Medication Refill Encounter Details Date Type Department Care Team (Late Contact Info) Description 09/11/2022 Refill [facility] - [facility] #2 [place] [address] Vandana Benítez APRN, CRIBBING SETTER [address]2 [place] [address] Medication Refill Social History Tobacco Use Types [...] suspected to have Coronavirus/COVID-19? No / Unsure 09/09/2022 8:57 AM GLASSWARE MAKER documented as of this encounter Plan of Treatment Upcoming Encounters Date Type Department Care Team (Late Contact Info) Description 01/03/2025 1:30 PM CDT Office Visit [facility] - Neurology - [place] #2 [place] [address] Vandana Benítez APRN, CRIBBING SETTER [address]2 [place] [address] documented as of this encounter Visit Diagnoses Diagnosis Chronic migraine w/o aura w/o status migrainosus, not intractable Chronic migraine without aura, without mention of intractable migraine without mention of status migrainosus Primary hypertension Unspecified essential hypertension documented in this encounter Care Teams Personnel Counselor Relationship Specialty Start Date End Date Donal Diaz MD [address] [place] [address] PCP - General Family Medicine 01/21/22 Vandana Benítez APRN, CRIBBING SETTER [address] [place] [address] Nurse Practitioner Advanced Practice Nurse 06/01/22 documented as of this encounter
--- OUTSIDE RECORDS SUMMARY | 2025-01-03 09:34 | XMS_ITS | Encounter Summary ---
Author Organization [facility] Address [address] [place] [address] Phone Care Team Providers Care Motor Vehicle Escort Driver Name Role Phone Donal Diaz MD Primary Care Provider Vandana Benítez APRN, CURATOR MEDICAL MUSEUM Unavailable [phone] Reason for Visit * Reason Comments Medication Refill Encounter Details Date Type Department Care Team (Late Contact Info) Description 10/12/2022 [facility] #[facility] [place] [address] Vandana Benítez APRN, CURATOR MEDICAL MUSEUM [address]2 [place] [address] Medication Refill Social History Tobacco Use Types [...] Description 01/03/2025 1:30 PM CDT Office [facility] [address] [place] [address] Vandana Benítez APRN, CURATOR MEDICAL MUSEUM [address] [place] [address] documented as of this encounter Visit Diagnoses Diagnosis Chronic migraine w/o aura w/o status migrainosus, not intractable Chronic migraine without aura, without mention of intractable migraine without mention of status migrainosus Primary hypertension Unspecified essential hypertension documented in this encounter Care Teams Motor Vehicle Escort Driver Relationship Specialty Start Date End Date Donal Diaz MD [address] [place] [address] PCP - General Family Medicine 01/21/22 Vandana Benítez APRN, ZAYRA [address] [place] [address] Nurse Practitioner Advanced Practice Nurse 06/01/22 documented as of this encounter
[2025-01-03 10:26] LABS: Alanine Aminotransferase 32 U/L (16-63); Albumin Level 3.5 g/dL (3.4-5.0); Alkaline Phosphatase 75 U/L (46-116); Anion Gap 7 mmol/L (4-12); Aspartate Amino Transferase 20 U/L (15-37); Bilirubin,Total 0.5 mg/dL (0.00-1.00); Blood Urea Nitrogen 14 mg/dL (7-18); Calcium 8.8 mg/dL (8.5-10.1); Carbon Dioxide 30 mmol/L (21-32); Chloride 105 mmol/L (98-108); Cholesterol 137 mg/dL (0-200); Estimated Glomerular Filt Rate > 60; Glucose 94 mg/dL (70-99); HDL Direct 36 mg/dL (40-60); LDL Cholesterol Calculated 75 mg/dL (<130); Osmolality Calculated 294 mOsm/kg (285-295); Potassium 4.4 mmol/L (3.5-5.1); Sodium 142 mmol/L (136-145); Total Protein 6.6 g/dL (6.4-8.2); Triglycerides 131 mg/dL (0-150)
[2025-01-03 10:53] LABS: Thyroid Stimulating Hormone Reflex 1.16 u/IU/mL (0.36-3.74)
== END 2025-01-03 09:08 | disposition home or self-care (01) ==
PROVIDERS: PCP Family Medicine; Visit Provider Family Medicine
DX: E03.9 Hypothyroidism, unspecified (principal); I10 Essential (primary) hypertension
CPT/HCPCS: 36415; 80053; 80061; 84443; 85025

== ENCOUNTER 2025-01-25 07:28 | Outpatient (CLI) | payer MEDICARE, SELFPAY ==
--- OUTSIDE RECORDS SUMMARY | 2025-01-25 07:36 | XMS_ITS | Encounter Summary ---
Author Organization [facility] Address [address] [place] [address] Phone Care Team Providers Care Printing Plate Clerk Name Role Phone Donal Diaz MD Primary Care Provider Vandana Benítez APRN, ENTERPRISE SALES PERSON Unavailable [phone] Reason for Visit * Reason Comments Medication Refill Encounter Details Date Type Department Care Team (Late st Contact Info) Description 10/04/2023 Refill [facility] - Neurology - [place] [address]2 [place] [phone] Vandana Benítez APRN, ENTERPRISE SALES PERSON [address]2 [place] [address] Medication Refill Social History Tobacco Use Types [...] Dept 07/14/23 Office Visit Vandana Benítez APRN, ENTERPRISE SALES PERSON [facility] [place]ments Showing recent visits within past 182 days and meeting all other requirements Future Appointments Date Type Provider Dept 01/03/24 Appointment Vandana Benítez APRN, ZAYRA [facility] Neurology [place] Showing future appointments within next 90 days and meeting all other requirements Passed - Patient has established therapy with Serotonin-Norepinephrine Reuptake Inhibitors for at least 6 months OR COST ANALYST documented in this encounter Plan of Treatment Upcoming Encounters Date Type Department Care Team (Late st Contact Info) Description 07/11/2025 1:30 PM CDT Office Visit [facility] - Neurology - [place] [address]2 [place] [address] Vandana Benítez APRN, ENTERPRISE SALES PERSON [address] [place] [address] documented as of this encounter Visit Diagnoses Diagnosis Chronic migraine w/o aura w/o status migrainosus, not intractable Chronic migraine without aura, without mention of intractable migraine without mention of status migrainosus documented in this encounter Care Teams Printing Plate Clerk Relationship Specialty Start Date End Date Donal Diaz MD [address] [place] [address] PCP - General Family Medicine 01/21/22 Vandana Benítez APRN, ZAYRA [address] [place] [address] Nurse Practitioner Advanced Practice Nurse 06/01/22 documented as of this encounter
--- OUTSIDE RECORDS SUMMARY | 2025-01-25 07:36 | XMS_ITS | Encounter Summary ---
Author Organization [facility] Address [address] [place] [address] Phone Care Team Providers Care Splitting Machine Operator Name Role Phone Donal Diaz MD Primary Care Provider Vandana Benítez APRN, LABORATORY MECHANICAL TECHNICIAN Unavailable [phone] Reason for Visit * Reason Comments Medication Refill Encounter Details Date Type Department Care Team (Late Contact Info) Description 09/11/2022 Refill [facility] - Neurology [facility] #2 [place] [address] Vandana Benítez APRN, LABORATORY MECHANICAL TECHNICIAN [address] [place] [address] Medication Refill Social History Tobacco Use Types [...] Coronavirus/COVID-19? No / Unsure 09/09/2022 8:57 AM VACUUM TRUCK DRIVER documented as of this encounter Plan of Treatment Upcoming Encounters Date Type Department Care Team (Late Contact Info) Description 07/11/2025 1:30 PM CDT Office Visit [facility] - Neurology - [place] [address] [place] [address] Vandana Benítez APRN, LABORATORY MECHANICAL TECHNICIAN [address] [place] [address] documented as of this encounter Visit Diagnoses Diagnosis Chronic migraine w/o aura w/o status migrainosus, not intractable Chronic migraine without aura, without mention of intractable migraine without mention of status migrainosus Primary hypertension Unspecified essential hypertension documented in this encounter Care Teams Splitting Machine Operator Relationship Specialty Start Date End Date Donal Diaz MD [address] [place] [address] PCP - General Family Medicine 01/21/22 Vandana Benítez APRN, LABORATORY MECHANICAL TECHNICIAN [address] [place] [address] Nurse Practitioner Advanced Practice Nurse 06/01/22 documented as of this encounter
--- OUTSIDE RECORDS SUMMARY | 2025-01-25 07:36 | XMS_ITS | Encounter Summary ---
Author Organization [facility] Address [address] [place] [address] Phone Care Team Providers Care License Registration Examiner Name Role Phone Donal Diaz MD Primary Care Provider [phone] Vandana Benítez APRN, ANGIOGRAPHY TECHNOLOGIST Unavailable [phone] Reason for Visit * Reason Comments Medication Refill Encounter Details Date Type Department Care Team (Late st Contact Info) Description 04/02/2023 Refill [facility] - Neurology [facility] #2 [place] [phone] Vandana Benítez APRN, ANGIOGRAPHY TECHNOLOGIST #2 [place] [address] Medication Refill Social History Tobacco Use Types [...] Dept 12/30/22 Office Visit Vandana Benítez APRN, [facility] Neurology [place] 10/26/22 Office Visit Vandana Benítez APRN, [facility] [place]ments Showing recent visits within past 182 days and meeting all other requirements Future Appointments Date Type Provider Dept 04/05/23 Appointment Vandana Benítez APRN, [facility] Neurology [place] Showing future appointments within next 90 days and meeting all other requirements Passed - Patient has established therapy with Serotonin-Norepinephrine Reuptake Inhibitors for at least 6 months documented in this encounter Plan of Treatment Upcoming Encounters Date Type Department Care Team (Late st Contact Info) Description 07/11/2025 1:30 PM CDT Office Visit [facility] - Neurology - [place] [address]2 [place] [address] Vandana Benítez APRN, ANGIOGRAPHY TECHNOLOGIST #2 [place] [address] documented as of this encounter Visit Diagnoses Diagnosis Chronic migraine w/o aura w/o status migrainosus, not intractable Chronic migraine without aura, without mention of intractable migraine without mention of status migrainosus documented in this encounter Care Teams License Registration Examiner Relationship Specialty Start Date End Date Donal Diaz MD [address] [place] [address] PCP - General Family Medicine 01/21/22 Vandana Benítez APRN, ANGIOGRAPHY TECHNOLOGIST [address]2 [place] [address] Nurse Practitioner Advanced Practice Nurse 06/01/22 documented as of this encounter
--- OUTSIDE RECORDS SUMMARY | 2025-01-25 07:36 | XMS_ITS | Encounter Summary ---
Author Organization [facility] Address [address] [place] [address] Phone Care Team Providers Care Tank Calibrator Name Role Phone Donal Diaz MD Primary Care Provider [phone] Vandana Benítez APRN, CEMENT [place] [address] Unavailable [phone] Reason for Visit * Reason Comments Medication Refill Encounter Details Date Type Department Care Team (Late st Contact Info) Description 01/01/2024 Refill [facility] - Neurology - [place] [address]2 [place] [phone] Vandana Benítez APRN, CEMENT [address] [place] [address] Medication Refill Social History Tobacco Use Types [...] Dept 07/14/23 Office Visit Vandana Benítez APRN, CEMENT [place] [address] [facility] [place]ments Showing recent visits within past 182 days and meeting all other requirements Future Appointments Date Type Provider Dept 02/14/24 Appointment Vandana Benítez APRN, ZAYRA [facility] Neurology [place] Showing future appointments within next 90 days and meeting all other requirements Passed - Patient has established therapy with Serotonin-Norepinephrine Reuptake Inhibitors for at least 6 months documented in this encounter Plan of Treatment Upcoming Encounters Date Type Department Care Team (Late st Contact Info) Description 07/11/2025 1:30 PM CDT Office Visit [facility] - Neurology - [place] [address] [place] [address] Vandana Benítez APRN, CEMENT [address] [place] [address] documented as of this encounter Visit Diagnoses Diagnosis Chronic migraine w/o aura w/o status migrainosus, not intractable Chronic migraine without aura, without mention of intractable migraine without mention of status migrainosus documented in this encounter Care Teams Tank Calibrator Relationship Specialty Start Date End Date Donal Diaz MD [address] [place] [address] PCP - General Family Medicine 01/21/22 Vandana Benítez APRN, ZAYRA [address] [place] [address] Nurse Practitioner Advanced Practice Nurse 06/01/22 documented as of this encounter
--- OUTSIDE RECORDS SUMMARY | 2025-01-25 07:36 | XMS_ITS | Clinical Summary ---
Author Organization [facility] Address [address], [facility] [address] [place] [address] Phone Care Team Providers Care Journeyman Press Operator Name Role Phone Donal Diaz MD Primary Care Provider [phone] Vandana Benítez APRN, COTTON BROKER Unavailable [phone] Allergies Active Allergy Reactions Criticality Noted Date [...] by mouth once as needed for Headaches. January repeat in 2 hours in needed 10 Tablet 2 3 Active Verapamil HCl CR 360 MG CAPSULE SR 24 HR Take 360 mg by mouth every morning. Active losartan-hydroc hlorothiazide (HYZAAR) 50-12.5 MG Tablet Take 1 Tablet by mouth daily. 4 Active venlafaxine (EFFEXOR-XR) 75 MG CAPSULE SR 24 HRIndications:C hronic migraine w/o aura w/o status migrainosus, not intractable Take 1 capsule by mouth once daily 90 Capsule 5 Active methylPREDNISol one (MEDROL DOSPACK) 4 MG Tablet Therapy PackIndications :Sinus headache Take 1 Tablet by mouth See Admin Instructions. 6 p.o day one, 5 p.o. Day two, 4 p.o. Day three, 3 p.o. Day 4, 2 p.o. Day 5, 1 p.o. Day 6 21 Tablet 4 01/04/20 25 Discontin ued(Thera py completed ) Active Problems No known active problems Encounters Date Type Department Care Team Description 01/03/2025 1:30 PM CDT Office Visit [facility] Neurology [facility] #2 [place] [address] Vandana Benítez APRN, COTTON BROKER Chronic migraine w/o aura w/o status migrainosus, not intractable (Primary Dx); Primary hypertension Discharge Disposition: Discharged to home or Selfcare 01/03/2025 Travel 12/23/2024 Refill [facility] Neurology [facility] #2 [place] [address] Kenny Rosenberg MD Medication Refill from Last [...] Sign Reading Time Taken Comments Blood Pressure 138/72 01/03/2025 1:32 PM CDT Pulse 101 01/03/2025 1:32 PM CDT Temperature 36.5 C (97.7 F) 01/03/2025 1:32 PM CDT Respiratory Rate 20 01/03/2025 1:32 PM CDT Oxygen Saturation 97% 01/03/2025 1:32 PM CDT Inhaled Oxygen Concentration - - Weight 111.1 kg (245 lb) 01/03/2025 1:32 PM CDT Height 170.2 cm (5' 7 ) 07/05/2024 10:35 AM CDT Body Mass Index 38.37 07/05/2024 10:35 AM CDT Plan of Treatment Upcoming Encounters Date Type Department Care Team (Late st Contact Info) Description 07/11/2025 1:30 PM CDT Office [facility] #2 [place] [address] Vandana Benítez APRN, COTTON BROKER [address] [place] [address] Health Maintenance Due Date Last Done Comments Hepatitis C Virus (HCV) Screening 1955 TdaP Immunization 1955 Cologuard 2006 Immunochemical Fecal Occult Blood 2006 Zoster Immunization (1 of 2) 2006 PSA Discussion 2011 Pneumococcal Immunization (50+ years) (2 of 2 - PCV) 11/13/2022 11/13/2021 SARS-COV-2 Immunization ( season) 2024 09/02/2021, 10/11/2020, 09/20/2020 Influenza Immunization (Season Ended) 2025 10/11/2023, 05/24/2017 Colonoscopy 02/22/2028 02/21/2023, 08/19, 03/28/2014, Additional history [...] Relevant to Health Maintenance Insurance MEDICARE [facility] Care Teams Journeyman Press Operator Relationship Specialty Start Date End Date Donal Diaz MD [address] [place] [address] PCP - General Family Medicine 01/21/22 Vandana Benítez APRN, COTTON BROKER [address] [place] [address] Nurse Practitioner Advanced Practice Nurse 9/13/22
--- OUTSIDE RECORDS SUMMARY | 2025-01-25 07:36 | XMS_ITS | Encounter Summary ---
Author Organization [facility] Address [address] [place] [address] Phone Care Team Providers Care Movie Actor Name Role Phone Donal Diaz MD Primary Care Provider [phone] Vandana Benítez APRN, LOOSELEAF BINDER COVERER Unavailable [phone] Reason for Visit * Reason Comments Medication Refill Encounter Details Date Type Department Care Team (Late st Contact Info) Description 01/10/2023 Refill [facility] - Neurology [facility] #2 [place] [address] Vandana Benítez APRN, LOOSELEAF BINDER COVERER #2 [place] [address] Medication Refill Social History Tobacco Use Types [...] Dept 12/30/22 Office Visit Vandana Benítez APRN, [facility] Neurology [facility] 10/26/22 Office Visit Vandana Benítez APRN, LOOSELEAF BINDER COVERER [facility] 09/09/22 Office Visit Vandana Benítez APRN, [facility] 08/10/22 Office Visit Vandaan Benítez APRN, [facility] Showing recent visits within past 182 days and meeting all other requirements Future Appointments Date Type Provider Dept 03/31/23 Appointment Vandana Benítez APRN, [facility] Showing future appointments within next 90 days and meeting all other requirements Passed - Patient has established therapy with Serotonin-Norepinephrine Reuptake Inhibitors for at least 6 months documented in this encounter Plan of Treatment Upcoming Encounters Date Type Department Care Team (Late st Contact Info) Description 07/11/2025 1:30 PM CDT Office Visit [facility] - Neurology - [place] [address] [place] [address] Vandana Benítez APRN, LOOSELEAF BINDER COVERER [address] [place] [address] documented as of this encounter Visit Diagnoses Diagnosis Chronic migraine w/o aura w/o status migrainosus, not intractable Chronic migraine without aura, without mention of intractable migraine without mention of status migrainosus documented in this encounter Care Teams Movie Actor Relationship Specialty Start Date End Date Donal Diaz MD [address] [place] [address] PCP - General Family Medicine 01/21/22 Vandana Benítez APRN, LOOSELEAF BINDER COVERER [address] [place] [address] Nurse Practitioner Advanced Practice Nurse 06/01/22 documented as of this encounter
--- OUTSIDE RECORDS SUMMARY | 2025-01-25 07:36 | XMS_ITS | Clinical Summary ---
Author Organization [facility] Address [address] [place] [address] Care Team Providers Care Neonatal Nurse Practitioner Name Role Phone Carmen Godinez MD Primary Care Provider [phone] Allergies Active Allergy Reactions Criticality Noted Date [...] Td Vaccines ( 1 - Tdap) 1975 Pneumococcal Vaccine: 50+ Ye ars (1 of 1 - PCV) 2006 Zoster Vaccines (1 of 2) 2006 Annual Medicare Wellness Visit 2021 COVID-19 Vaccine ( - 2023-2 5 [...] complete this topic Insurance MEDICARE Care Teams Neonatal Nurse Practitioner Relationship Specialty Start Date End Date Carmen Godinez MD [address] [place] [address] PCP - General FAMILY PRACTICE 05/07/20
--- OUTSIDE RECORDS SUMMARY | 2025-01-25 07:36 | XMS_ITS | Encounter Summary ---
Author Organization [facility] Address [address] [place] [address] Phone Care Team Providers Care Customer Relationship Specialist Name Role Phone Donal Diza MD Primary Care Provider Vandana Benítez APRN, PILE DRIVER Unavailable [phone] Reason for Visit * Reason Comments Medication Refill Encounter Details Date Type Department Care Team (Late Contact Info) Description 10/12/2022 Refill [facility] #2 [place] [address] Vandana Benítez APRN, PILE DRIVER [address] [place] [address] Medication Refill Social History Tobacco Use Types [...] Description 07/11/2025 1:30 PM CDT [facility] #[address] [place] [address] Vandana Benítez APRN, PILE DRIVER [address] [place] [address] documented as of this encounter Visit Diagnoses Diagnosis Chronic migraine w/o aura w/o status migrainosus, not intractable Chronic migraine without aura, without mention of intractable migraine without mention of status migrainosus Primary hypertension Unspecified essential hypertension documented in this encounter Care Teams Customer Relationship Specialist Relationship Specialty Start Date End Date Donal Diaz MD [address] [place] [address] PCP - General Family Medicine 01/21/22 Vandana Benítez APRN, ZAYRA [address] [place] [address] Nurse Practitioner Advanced Practice Nurse 06/01/22 documented as of this encounter
--- OUTSIDE RECORDS SUMMARY | 2025-01-25 07:36 | XMS_ITS | Encounter Summary ---
Author Organization [facility] Address [address] [place] [address] Phone Care Team Providers Care Stone Dresser Name Role Phone Donal Diaz MD Primary Care Provider Vandana Benítez APRN, FINISH ROLLS OPERATOR Unavailable [phone] Reason for Visit * Reason Comments Medication Refill Encounter Details Date Type Department Care Team (Late st Contact Info) Description 06/29/2023 Refill [facility] - Neurology - [place] #[address] [place] [address] Vandana Benítez APRN, FINISH ROLLS OPERATOR [address] [place] [address] Medication Refill Social History Tobacco Use Types [...] Dept 04/05/23 Office Visit Vandana Benítez APRN, [facility] Christofermarshall Clements 12/30/22 Office Visit Vandana Benítez APRN, [facility] Neurology [facility] Showing recent visits within past 182 days and meeting all other requirements Future Appointments Date Type Provider Dept 07/14/23 Appointment Vandana Benítez APRN, [facility] Showing future appointments within next 90 days and meeting all other requirements Passed - Patient has established therapy with Serotonin-Norepinephrine Reuptake Inhibitors for at least 6 months documented in this encounter Plan of Treatment Upcoming Encounters Date Type Department Care Team (Late st Contact Info) Description 07/11/2025 1:30 PM CDT Office Visit [facility] - Neurology - [place] [address] [place] [address] Vandana Benítez APRN, [facility] [address] [place] [address] documented as of this encounter Visit Diagnoses Diagnosis Chronic migraine w/o aura w/o status migrainosus, not intractable Chronic migraine without aura, without mention of intractable migraine without mention of status migrainosus documented in this encounter Care Teams Stone Dresser Relationship Specialty Start Date End Date Donal Diaz MD [address] [place] [address] PCP - General Family Medicine 01/21/22 Vandana Benítez APRN, FINISH ROLLS OPERATOR [address] [place] [address] Nurse Practitioner Advanced Practice Nurse 06/01/22 documented as of this encounter
--- OUTSIDE RECORDS SUMMARY | 2025-01-25 07:36 | XMS_ITS | CONTINUITY OF CARE DOCUMENT ---
Author Name charlie guerra Address Unknown Organization [facility] Address [address] [facility] [facility] [address] [place] [address] Phone [phone] Care Team Providers Care Chief Librarian Branch Name Role Phone charlie guerra Unavailable Unavailable
--- OUTSIDE RECORDS SUMMARY | 2025-01-25 07:37 | XMS_ITS | Encounter Summary ---
Author Organization [facility] Address [address] [place] [address] Phone Care Team Providers Care Strategy Specialist Name Role Phone Donal Diaz MD Primary Care Provider Vandana Benítez APRN, PERFECT BINDER FEEDER OFFBEARER Unavailable [phone] Reason for Visit * Reason Comments Medication Refill Encounter Details Date Type Department Care Team (Late Contact Info) Description 11/09/2022 Refill [facility] - Neurology [facility] [address] [place] [address] Vandana Benítez APRN, PERFECT BINDER FEEDER OFFBEARER [address] [place] [address] Medication Refill Social History Tobacco Use Types [...] Coronavirus/COVID-19? No / Unsure 10/26/2022 9:30 AM TRADE RECRUITER documented as of this encounter Plan of Treatment Upcoming Encounters Date Type Department Care Team (Late Contact Info) Description 07/11/2025 1:30 PM CDT Office Visit [facility] - Neurology - [place] [address] [place] [address] Vandana Benítez APRN, PERFECT BINDER FEEDER OFFBEARER [address] [place] [address] documented as of this encounter Visit Diagnoses Diagnosis Chronic migraine w/o aura w/o status migrainosus, not intractable Chronic migraine without aura, without mention of intractable migraine without mention of status migrainosus Primary hypertension Unspecified essential hypertension documented in this encounter Care Teams Strategy Specialist Relationship Specialty Start Date End Date Donal Diaz MD [address] [place] [id number] PCP - General Family Medicine 01/21/22 Vandana Benítez APRN, PERFECT BINDER FEEDER OFFBEARER [address] [place] [address] Nurse Practitioner Advanced Practice Nurse 06/01/22 documented as of this encounter
--- OUTSIDE RECORDS SUMMARY | 2025-01-25 07:37 | XMS_ITS | Encounter Summary ---
Author Organization [facility] Address [address] [place] [address] Phone Care Team Providers Care Full Decator Operator Name Role Phone Donal Diaz MD Primary Care Provider [phone] Vandana Benítez APRN, ELECTION SUPERVISOR Unavailable [phone] Reason for Visit * Reason Comments Medication Refill Encounter Details Date Type Department Care Team (Late Contact Info) Description 05/04/2022 [facility] [address] [place] [id number] Vandana Benítez APRN, ELECTION SUPERVISOR [address] [place] [address] Medication Refill Social History Tobacco Use Types [...] Description 07/11/2025 1:30 PM CDT Office Visit [facility] [address] [place] [phone] Vandana Benítez APRN, ELECTION SUPERVISOR [address] [place] [address] documented as of this encounter Visit Diagnoses Diagnosis Chronic migraine w/o aura w/o status migrainosus, not intractable Chronic migraine without aura, without mention of intractable migraine without mention of status migrainosus Primary hypertension Unspecified essential hypertension documented in this encounter Care Teams Full Decator Operator Relationship Specialty Start Date End Date Donal Diaz MD [address] [place] [id number] PCP - General Family Medicine 01/21/22 Vandana Benítez APRN, ZAYRA [address] [place] [address] Nurse Practitioner Advanced Practice Nurse 06/01/22 documented as of this encounter
--- NOTE | 2025-01-25 07:44 | ECHO_ITS ---
Patient Info Name: Wan Fabian Age: 69 years : 1955 Gender: Male Ht: 67 in Wt: 245 lbs BSA: 2.34 m2 HR: 85 bpm BP: 150 / 83 mmHg Heart Rhythm: Sinus Rhythm Technical Quality: Fair Exam Date: 01/25/2025 7:49 AM Exam Location: Echo Lab Patient Status: Outpatient Admit Date: 01/25/2025 Staff Ordering Physician: Bhargav Alvarez DO [employer] Teacher: Alyssa Deutsch RDCS Attending Provider: Bhargav Alvarez DO Referring Physician: Antonio GARCIA; Exam Type: CA echo doppler color flow Study Info Indications I35.0 - Nonrheumatic aortic (valve) stenosis Complete two-dimensional, color flow and Doppler transthoracic echocardiogram is performed. History/Risk Factors Family History: Coronary Artery Disease Summary 1. Complete two-dimensional, color flow and Doppler transthoracic echocardiogram is performed. 2. Left ventricular chamber dimension is normal. 3. Left ventricular systolic function is normal, estimated at 60-65%. 4. The left ventricular diastolic function is grade I diastolic dysfunction. 5. E/e' 19 is elevated. 6. Left atrial chamber dimension is mildly enlarged. 7. There is moderate aortic valve sclerosis. 8. There is mild aortic valve stenosis with a peak velocity of 233 cm/s, mean gradient of 14 mmHg, and aortic valve area of 1.9 cm2. 9. There is trace aortic valve regurgitation. 10. The mitral valve has mildly calcified leaflets. 11. No pulmonary hypertension, estimated pulmonary arterial systolic pressure is 28 mmHg. Left Ventricle E/e' 19 is elevated. Left ventricular chamber dimension is normal. Left ventricular systolic function is normal, estimated at 60-65%. The left ventricular diastolic function is grade I diastolic dysfunction. Right Ventricle Right ventricular systolic function is normal and with normal TAPSE 2.4 cm. Right ventricular chamber dimension is normal. Left Atria Left atrial chamber dimension is mildly enlarged. Right Atria Right atrial chamber dimension is normal. Aortic Valve The aortic valve is trileaflet. There is moderate aortic valve sclerosis. There is mild aortic valve stenosis with a peak velocity of 233 cm/s, mean gradient of 14 mmHg, and aortic valve area of 1.9 cm2. There is trace aortic valve regurgitation. Pulmonic Valve There is no pulmonic regurgitation. Mitral Valve The mitral valve has mildly calcified leaflets. There is no mitral valve stenosis. There is no mitral valve regurgitation. Tricuspid Valve There is no tricuspid valve regurgitation. No pulmonary hypertension, estimated pulmonary arterial systolic pressure is 28 mmHg. Pericardium/Pleural There is no pericardial effusion. Inferior Vena Cava Normal inferior vena cava with >50% collapse upon inspiration consistent with normal right atrial pressure, 5 mmHg. Aorta The aortic root size at the sinus of Valsalva is normal. Left Ventricular Outflow Tract Name Value Normal LVOT 2D LVOT Diameter 2.0 cm LVOT Doppler LVOT Peak Gradient 5 mmHg LVOT Mean Gradient 3 mmHg LVOT VTI 25 cm LVOT VTI/AV VTI Ratio 0.6 LVOT Stroke Volume 83 ml LVOT CO 6.4 l/min LVOT CI 2.8 l/min/m2 Pulmonic Valve Name Value Normal RVOT Doppler RVOT Peak Gradient 3 mmHg PV Doppler PV Peak Gradient 4 mmHg Mitral Valve Name Value Normal MV Doppler MV Decel Garden 395 cm/s2 MV PHT 70 ms MV Area (PHT) 3.1 cm2 4.0-5.0 MV Diastolic Function MV E Peak Velocity 96 cm/s MV A Peak Velocity 112 cm/s MV E/A 0.9 MV Decel Time 243 ms MV Annular TDI MV E/e' (Septal) 18.4 <=8.0 MV E/e' (Lateral) 20.7 <=8.0 MV E/e' (Average) 19.6 Tricuspid Valve Name Value Normal TV Regurgitation Doppler TR Peak Velocity 240 cm/s TR Peak Gradient 23 mmHg Estimated PAP/RSVP RA Pressure 5 mmHg <=5 PA Systolic Pressure 28 mmHg <36 RV Systolic Pressure 28 mmHg <36 Aorta Name Value Normal Ascending Aorta Ao Root Diameter (MM) 3.3 cm Ao Root Diam Index (MM) 1.4 cm/m2 Aortic Valve Name Value Normal AV Doppler AV Peak Velocity 233 cm/s AV Peak Gradient 22 mmHg AV Mean Gradient 14 mmHg AV VTI 44 cm AV Area (Cont Eq VTI) 1.9 cm2 >=3.0 AV Area (Cont Eq Jason) 1.6 cm2 AV Regurgitation 2D LVOT Area 3.3 cm2 Ventricles Name Value Normal LV Dimensions 2D/MM IVS Diastolic Thickness (2D) 1.0 cm 0.6-1.0 LVID Diastole (2D) 4.9 cm 4.2-5.8 LVIW Diastolic Thickness (2D) 1.0 cm 0.6-1.0 LVID Systole (2D) 2.7 cm 2.5-4.0 LVOT Diameter 2.0 cm LV Mass (2D Cubed) 177.39 g 88.00-224.00 LV Mass Index (2D Cubed) 76 g/m2 49-115 Relative Wall Thickness (2D) 0.40 LV Fractional Shortening/Ejection Fraction 2D/MM LV Fractional Shortening (2D) 45 % 25-43 LV EF (2D Teicholz) 76 % 52-72 LV Diastolic Volume (4C MOD) 76 ml LV EF (4C MOD) 63 % LV Diastolic Volume (2C MOD) 81 ml LV EF (2C MOD) 61 % LV Diastolic Volume (BP MOD) 79 ml 62-150 LV Diastolic Volume Index (BP MOD) 34 ml/m2 34-74 LV Systolic Volume (BP MOD) 31 ml 21-61 LV Systolic Volume Index (BP MOD) 13 ml/m2 11-31 LV EF (BP MOD) 61 % 52-72 LV Diastolic Length (4C) 7.8 cm LV Systolic Length (4C) 6.4 cm LV Stroke Volume (4C MOD) 48 ml Atria Name Value Normal LA Dimensions LA Dimension (MM) 4.0 cm 3.0-4.1 LA Volume (4C A-L) 66 ml LA Volume (BP A-L) 68 ml RA Dimensions RA Area (4C) 15.6 cm2 <=18.0 Report Signatures
== END 2025-01-25 07:29 | disposition home or self-care (01) ==
LOC: ANHCARD 07:30
PROVIDERS: PCP Family Medicine; Visit Provider Internal Medicine Cardiovascular Disease
DX: R93.1 Abnormal findings on diagnostic imaging of heart and coronary circulation (principal); I35.0 Nonrheumatic aortic (valve) stenosis
CPT/HCPCS: 93306